=== PATIENT | female | born 1965 | race Caucasian/White ===

== ENCOUNTER 2016-05-31 09:26 | Emergency (ER) | payer BC ==
[2016-05-31 12:01] LABS: Hematocrit 42 % (35-47); Hemoglobin 14.2 g/dl (12.0-16.0); Mean Corpuscular HGB Conc 34 g/dl (31-36); Mean Corpuscular Hemoglobin 31 pg (27-31); Mean Corpuscular Volume 92 fL (80-97); Mean Platelet Volume 10 um3 (7.4-10.4); Red Blood Count 4.59 10^6/ul (4.0-5.4); Red Cell Distribution Width 13 % (10.5-15); White Blood Count 5.6 10^3/ul (3.5-10.8)
[2016-05-31 12:02] LABS: Urine Bilirubin Negative (Negative); Urine Glucose Negative (Negative); Urine Nitrite Negative (Negative)
--- NOTE | 2016-05-31 12:14 | RAD ---
Indication: Headache; worsening vision for the past 2 weeks. Comparison: None. Technique: Noncontrast CT vertex of skull through foramen magnum. Report: The sulci, ventricles, and basal cisterns are normal for age. Casiano matter white matter differentiation is preserved without evidence for edema. No intra or extra axial hemorrhage, mass, or fluid collection detected. Unremarkable visualized orbital contents. Unremarkable calvarium and skull base. Unremarkable scalp. The visualized paranasal sinuses and mastoid air spaces are clear. IMPRESSION: Negative unenhanced head CT.
[2016-05-31 12:17] LABS: Albumin 4.2 g/dL (3.2-5.2); BUN/Creatinine Ratio 21.3 (8-20); C Reactive Protein 1.2 mg/L (< 5.00); Calcium 9.4 mg/dL (8.6-10.3); EGFR Non-African American 103.4 (>60); Magnesium 2.1 mg/dL (1.9-2.7); Potassium 4.4 mmol/L (3.5-5.0); Total Bilirubin 0.5 mg/dL (0.2-1.0); Total Protein 7.2 g/dL (6.4-8.9)
[2016-05-31 12:19] LABS: Troponin I 0.01 ng/mL (<0.04)
[2016-05-31 12:49] LABS: Erythrocyte Sed Rate 16 mm/Hr (0-30)
[2016-05-31 13:00] LABS: TSH (Thyroid Stimulating Horm) 2.6 mcIU/mL (0.34-5.60)
--- NOTE | 2016-05-31 14:18 | ED ---
Kyra Rubi Matthew, scribed for Angel Alejandro MD on 05/31/16 at 1130 . Headache - HPI Summary HPI Summary: A 50 y/o female presents to the ED with an intermittent temporal headache since 3 days ago. The pain varies from 0-5 in severity and she chronically has these headaches. Two days ago, the patient also noticed blacked squares in each eye, which persisted for 5-6 hours. The squares were directly in the middle of her vision. Yesterday and today, she continues to have visual difficulties, but is unable to described them. She notes that its difficulty to focus on stimuli both visual and hearing. Associated symptoms include difficulty thinking, difficulty focusing, and chest fluttering. The patient denies speech difficulties, numbness, and weakness. She states that she her headache worsens when she tries to find the next word. The patient was at a conference over the weekend. FHx of multiple TIAs in her mother, which started in her mid 50s. The patient is on ADHD medication. - History Of Current Complaint Chief Complaint: EDHeadache Stated Complaint: HEADACHE/VISUAL DISTURBANCES Time Seen by Provider: 05/31/16 11:00 Hx Obtained From: Patient Onset/Duration: Started days ago, Still Present Initially Headache Was: Moderate Currently Pain Is: Moderate Timing: Intermittent, Lasting: Character: Typical Headache Location of Headache: Temporal Associated Signs And Symptoms: Visual Changes, Other (Noted In Comments) - Difficulty thinking, difficulty focus on stimuli - Allergies/Home Medications Allergies/Adverse Reactions: Allergies Allergy/AdvReac Type Severity Reaction Status Date / Time No Known Allergies Allergy Unverified 01/06/16 11:54 PMH/Surg Hx/FS Hx/Imm Hx Endocrine/Hematology History: Denies: Hx Diabetes, Hx Thyroid Disease Cardiovascular History: Reports: Hx Hypercholesterolemia Denies: Hx Hypertension, Hx Pacemaker/ICD, Hx Peripheral Vascular Disease History: Denies: Hx Renal Disease Musculoskeletal History: Denies: Hx Arthritis, Hx Rheumatoid Arthritis, Hx Osteoporosis Sensory History: Denies: Hx Cataracts, Hx Contacts or Glasses, Hx Glaucoma, Hx Hearing Aid Opthamlomology History: Denies: Hx Cataracts, Hx Contacts or Glasses, Hx Glaucoma Neurological History: Denies: Hx Headaches, Hx Seizures, Hx Transient Ischemic Attacks (TIA) Psychiatric History: Reports: Hx Anxiety, Hx Depression Denies: Hx Panic Disorder - Surgical History Surgery Procedure, Year, and Place: 12/16/14 HYSTERECTOMY. AGE 18 HERNIA REPAIR. 04/01/08-CYPHER HEART STENTS-1.5 OR 3T UP TO 720G/CM Infectious Disease History: No Infectious Disease History: Denies: Traveled Outside the [place] in Last 30 Days - Family History Known Family History: Negative: Hypertension, Diabetes Family History: FHx of TIA. FHx of CVA. FHx of CA. NO FHx of breast CA. NO FHx of RA, arthritis, HLD, osteoporosis - Social History Occupation: Employed Full-time Hx Substance Use: No Substance Use Type: Reports: None Hx Tobacco Use: No Review of Systems Constitutional: Negative Eyes: Other - Visual Symptoms ENT: Negative Cardiovascular: Other - Chest Fluttering Respiratory: Negative Gastrointestinal: Negative Genitourinary: Negative Musculoskeletal: Negative Skin: Negative Neurological: Other - Difficulty thinking; Difficulty focusing on stimuli Psychological: Normal All Other Systems Reviewed And Are Negative: Yes Physical Exam Triage Information Reviewed: Yes Vital Signs On Initial Exam: Initial Vitals Temp Pulse Resp BP Pulse Ox 98.4 F 83 18 131/72 99 05/31/16 09:29 05/31/16 09:29 05/31/16 09:29 05/31/16 09:29 05/31/16 09:29 Vital Signs Reviewed: Yes Appearance: Positive: Well-Appearing, No Pain Distress Skin: Positive: Warm, Dry Head/Face: Positive: Normal Head/Face Inspection Eyes: Positive: EOMI, ZOHREH ENT: Positive: Normal ENT inspection Neck: Positive: Supple, Nontender Respiratory/Lung Sounds: Positive: Clear to Auscultation, Breath Sounds Present Cardiovascular: Positive: RRR Abdomen Description: Positive: Nontender, Soft Bowel Sounds: Positive: Present Musculoskeletal: Positive: Strength/ROM Intact Neurological: Positive: Alert, Oriented to Person Place, Time Psychiatric: Positive: Anxious Diagnostics - Vital Signs Vital Signs Temp Pulse Resp BP Pulse Ox 05/31/16 09:29 98.4 F 83 18 131/72 99 - Laboratory Lab Results: Lab Results 05/31/16 05/31/16 05/31/16 Range/Units 11:50 11:50 11:50 WBC 5.6 (3.5-10.8) 10^3/ul RBC 4.59 (4.0-5.4) 10^6/ul Hgb 14.2 (12.0-16.0) g/dl Hct 42 (35-47) % MCV 92 (80-97) fL MCH 31 (27-31) pg MCHC 34 (31-36) g/dl RDW 13 (10.5-15) % Plt Count 160 (150-450) 10^3/ul MPV 10 (7.4-10.4) um3 Neut % (Auto) 58.9 (38-83) % Lymph % (Auto) 28.7 (25-47) % [place] % (Auto) 8.2 (1-9) % Eos % (Auto) 3.6 (0-6) % Baso % (Auto) 0.6 (0-2) % Absolute Neuts (auto) 3.3 (1.5-7.7) 10^3/ul Absolute Lymphs (auto) 1.6 (1.0-4.8) 10^3/ul Absolute Monos (auto) 0.5 (0-0.8) 10^3/ul Absolute Eos (auto) 0.2 (0-0.6) 10^3/ul Absolute Basos (auto) 0 (0-0.2) 10^3/ul Absolute Nucleated RBC 0 10^3/ul Nucleated RBC % 0.1 ESR 16 (0-30) mm/Hr INR (Anticoag Therapy) 0.97 (0.89-1.11) APTT 28.7 (26.0-36.3) seconds Sodium (133-145) mmol/L Potassium (3.5-5.0) mmol/L Chloride (101-111) mmol/L Carbon Dioxide (22-32) mmol/L Anion Gap (2-11) mmol/L BUN (6-24) mg/dL Creatinine (0.51-0.95) mg/dL Est GFR ( Amer) (>60) Est GFR (Non-Af Amer) (>60) BUN/Creatinine Ratio (8-20) Glucose (70-100) mg/dL Calcium (8.6-10.3) mg/dL Magnesium (1.9-2.7) mg/dL Total Bilirubin (0.2-1.0) mg/dL AST (13-39) U/L ALT (7-52) U/L Alkaline Phosphatase (34-104) U/L Total Creatine Kinase (10-223) U/L Troponin I (<0.04) ng/mL C-Reactive Protein (< 5.00) mg/L Total Protein (6.4-8.9) g/dL Albumin (3.2-5.2) g/dL Globulin (2-4) g/dL Albumin/Globulin Ratio (1-3) TSH (0.34-5.60) mcIU/mL Urine Color Straw Urine Appearance Clear Urine pH 8.0 (5-9) Ur Specific [place] 1.005 L (1.010-1.030) Urine Protein Negative (Negative) Urine Ketones Negative (Negative) Urine Blood Negative (Negative) Urine Nitrate Negative (Negative) Urine Bilirubin Negative (Negative) Urine Urobilinogen Negative (Negative) Ur Leukocyte Esterase Negative (Negative) Urine Glucose Negative (Negative) 05/31/16 Range/Units 11:50 WBC (3.5-10.8) 10^3/ul RBC (4.0-5.4) 10^6/ul Hgb (12.0-16.0) g/dl Hct (35-47) % MCV (80-97) fL MCH (27-31) pg MCHC (31-36) g/dl RDW (10.5-15) % Plt Count (150-450) 10^3/ul MPV (7.4-10.4) um3 Neut % (Auto) (38-83) % Lymph % (Auto) (25-47) % [place] % (Auto) (1-9) % Eos % (Auto) (0-6) % Baso % (Auto) (0-2) % Absolute Neuts (auto) (1.5-7.7) 10^3/ul Absolute Lymphs (auto) (1.0-4.8) 10^3/ul Absolute Monos (auto) (0-0.8) 10^3/ul Absolute Eos (auto) (0-0.6) 10^3/ul Absolute Basos (auto) (0-0.2) 10^3/ul Absolute Nucleated RBC 10^3/ul Nucleated RBC % ESR (0-30) mm/Hr INR (Anticoag Therapy) (0.89-1.11) APTT (26.0-36.3) seconds Sodium 137 (133-145) mmol/L Potassium 4.4 (3.5-5.0) mmol/L Chloride 105 (101-111) mmol/L Carbon Dioxide 27 (22-32) mmol/L Anion Gap 5 (2-11) mmol/L BUN 13 (6-24) mg/dL Creatinine 0.61 (0.51-0.95) mg/dL Est GFR ( Amer) 133.0 (>60) Est GFR (Non-Af Amer) 103.4 (>60) BUN/Creatinine Ratio 21.3 H (8-20) Glucose 94 (70-100) mg/dL Calcium 9.4 (8.6-10.3) mg/dL Magnesium 2.1 (1.9-2.7) mg/dL Total Bilirubin 0.50 (0.2-1.0) mg/dL AST 24 (13-39) U/L ALT 23 (7-52) U/L Alkaline Phosphatase 118 H (34-104) U/L Total Creatine Kinase 77 (10-223) U/L Troponin I 0.01 (<0.04) ng/mL C-Reactive Protein 1.20 (< 5.00) mg/L Total Protein 7.2 (6.4-8.9) g/dL Albumin 4.2 (3.2-5.2) g/dL Globulin 3.0 (2-4) g/dL Albumin/Globulin Ratio 1.4 (1-3) TSH 2.60 (0.34-5.60) mcIU/mL Urine Color Urine Appearance Urine pH (5-9) Ur Specific [place] (1.010-1.030) Urine Protein (Negative) Urine Ketones (Negative) Urine Blood (Negative) Urine Nitrate (Negative) Urine Bilirubin (Negative) Urine Urobilinogen (Negative) Ur Leukocyte Esterase (Negative) Urine Glucose (Negative) Result Diagrams: 05/31/16 11:50 05/31/16 11:50 Lab Statement: Any lab studies that have been ordered have been reviewed, and results considered in the medical decision making process. - CT Brain CT CT Interpretation: No Acute Changes - IMPRESSION: Negative unenhanced head CT. CT Interpretation Completed By: Radiologist Re-Evaluation - Re-Evaluation First Eval Re-Evaluation Time: 13:51 Change: Improved Comment: Reviewed the lab and imaging results with the patient. She states that she is feeling better. Headache Course/Dx - Course Assessment/Plan: WELL IN ED. NO EYE PAIN. DISCUSSED RESULTS WITH DR DAVIS , NEUROLOGY. F/U WITH OPTHALMOLOGY ARRANGED; PATIENT WILL GO DIRECTLY TO DR JENNINGS'S OFFICE. PATIENT HAS FOLLOW UP WITH PMD TOMORROW. DISCHARGE HOME STABLE. - Diagnoses Provider Diagnoses: Blurred vision, Headache - Physician Notifications Discussed Care Of Patient With: Dr. López (Neurology) at 13:21 -- Notified of patient's history and didn't Believe there was obvious neurology deficit. He recommended an eye exam be completed today. Nick eye associated at 14:01 Stated that they would perform an eye exam on the patient today. Discharge - Discharge Plan Condition: Stable Disposition: HOME Patient Education Materials: Blurred Vision (ED) Referrals: Paulette Castellano MD [Primary Care Provider] - Additional Instructions: FOLLOW UP AT DR JENNINGS'S OFFICE NOW, [address] [place] [address], . RETURN TO THE EMERGENCY DEPARTMENT FOR ANY WORSENING OF YOUR CONDITION OR QUESTIONS OR CONCERNS. The documentation as recorded by the Kyra eckert Matthew accurately reflects the service I personally performed and the decisions made by me, Angel Alejandro MD.
[2016-05-31 14:19] VITALS: BP 120/68
== END 2016-05-31 14:18 | disposition home or self-care (01) ==
LOC: ED 09:26
DX: H53.8 Other visual disturbances (principal); R51 Headache
CPT/HCPCS: 36415; 70450; 80053; 81003; 82550; 83735; 84443; 84484; 85025; 85610; 85652; 85730; 86140; 99282

== ENCOUNTER 2019-05-12 16:26 | Emergency (ER) | payer BC ==
--- OUTSIDE RECORDS SUMMARY | 2019-05-12 16:32 | XMS REPORT | Continuity of Care Document ---
:1965 External Reference #:[id number] Author Name Sahra March M.D., FACP (transmitted by agent of provider Grisel Norris) Address [address], [place] [address] Care Team Providers Name Role Phone Bernarda Reyes MD - Internal Medicine Care Team Information [employer] Dean Sanjiv Perdomo MD - Gastroenterology Care Team Information [employer] Dean Don Mcgowan MD - Surgery Care Team Information [employer] Dean [phone] Anna Romero MD - Obstetrics & Care Team Information [employer] Dean Gynecology Yogi Dias MD - Cardiovascular Care Team Information [employer] Dean Disease Jeannette Brown MD - Internal Care Team Information [employer] Dean [phone] Medicine Tomi Mauro D.D.S. - Dentist Care Team Information [employer] Dean Problems Active Problems Provider Date Coronary atherosclerosis Bernarda Reyes M.D. Onset: 07/13/2011 Chronic ischemic heart disease Yogi Dias M.D., [facility], [facility] Onset: 2013 Essential hypertension Yogi Dias M.D., [facility], [facility] Onset: 10/09/2013 Mixed hyperlipidemia Yogi Dias M.D., [facility], [facility] Onset: 12/11/2014 Chronic ischemic heart disease, Yogi Dias M.D., [facility], [facility] Onset: 2014 unspecified Tubular adenoma Onset: Note: repeat 2020 Insomnia Isaac Neely BILLING ADMINISTRATOR Onset: 06/01/2016 Moderate depression Isaac Neely, BILLING ADMINISTRATOR Onset: 06/01/2016 Attention deficit hyperactivity disorder, 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 Social History Type Date Description Comments Sex Unknown ETOH Use Rarely consumes 1 drink every four alcohol months on average Tobacco Use Start: Unknown Patient has never smoked Recreational Drug Use Denies Drug Use Smoking Status Reviewed: Patient has never 03/29/19 smoked Exercise Type/Frequency Exercises regularly swimming 3x/wk at [email or web address] , bicycle and walking for transportation jogging Allergies, Adverse Reactions, Alerts Active Allergies Reaction Severity Comments Date NKDA 07/13/2011 Sulfites itchy, cannot sleep Moderate 06/01/2016 Medications Active Medications SIG Qnty Indications Ordering Date Provider Methylphenidate 1 tab daily 30tabs Sahra March, 01/09/2019 Hydrochloride ER M.DOsmel, FACP 36mg Tablets ER Mandibular Advancement fabricate oral Valorie Knox, 12/28/2017 Device appliance DNP, RN, SAFETY LEADER-BC Device /mandibular advancement device for sleep apnea with needed adjustments. dx g47.33 Metoprolol Succinate 1/2 by mouth every 45tabs Qutaybeh S. 12/11/2014 ER day Анна Armstrong 25mg Tablets ER 24HR Nitrostat 1/2-1 tab 25tabs I25.9 Yogi Dias, 12/11/2014 0.4mg Tablets sublingual as M.DOsmel, FACC, Sub needed every 5 FSCAI mins x 3 Atorvastatin Calcium 1 by mouth every 90tabs Qutaybeh S. 10/04/2013 40mg day Анна Armstrong Tablets Colace 1 po bid 60caps 285.9 Bernarda Reyes, 07/20/2011 100mg Capsules M.D. Sertraline HCL 2 tabs by mouth 90tabs Sahra March, 100mg every day at at M.D., FACP Tablets bedtime Aspir-81 1 po qd Unknown 81mg Tablets DR [place] 3 1 po qday 30caps Unknown 2000mg Capsules Niacin ER 1 by mouth daily 90tabs Qutaybeh S. (Antihyperlipidemic) Анна Armstrong 500mg Tablets ER Aripiprazole take one tablet by Unknown 5mg Tablets mouth nightly at bedtime Medications Administered in Office Medication SIG Qnty Indications Ordering Provider Date Technetium TC 99M Morris Dickinson M.D., 08/08/2012 Tetrofosmin, Per Unit Dose FACC, FASMI Up To 40 Millicuries Injection Immunizations CPT Code Status Date Vaccine Reaction Lot # [id number] Given 12/25/2018 Influenza Virus Vaccine, No Immediate reaction [id number] Quadrivalent ([id number]), Noted - Pt tolerated Derived From Cell well ... 44580 Given 12/29/2017 Influenza Virus Vaccine, Quadrivalent, Split, Preservative Free [id number] Given 02/03/2016 Influ Virus Vaccine, Quadrivalent, Split Virus, [place] [id number] Given 12/02/2014 Influenza Virus Vaccine, [id number] Quadrivalent, Split, Preservative Free 86075 Given 02/06/2014 Tdap - [id number] Tetanus/Diptheria/Acellular Pertussis 15808 Given 01/02/2014 Influenza Vaccine Quadrivalent, Live For Intranasal Use [id number] Given 12/03/2011 Fluzone Vaccine [id number] Vital Signs Date Vital Result Comment 03/29/2019 1:04pm Height 64.5 inches 5'4.50" Weight 139.00 lb Heart Rate 62 /min BP Systolic Sitting 116 mmHg Lue reg cuff BP Diastolic Sitting 70 mmHg Lue reg cuff Body Temperature 97.4 F O2 % BldC Oximetry 97 % BMI (Body Mass Index) 23.5 kg/m2 12/25/2018 12:09pm Height 64.5 inches 5'4.50" Weight 133.00 lb Heart Rate 61 /min BP Systolic Sitting 105 mmHg BP Diastolic Sitting 72 mmHg O2 % BldC Oximetry 100 % BMI (Body Mass Index) 22.5 kg/m2 Results Test Acquired Date Facility Test Result H/L Range Note Comp Metabolic 12/09/2018 [facility] Sodium 142 mmol/L Normal 135-[address] [place] [address] [phone] Potassium 3.9 mmol/L Normal 3.5-5.0 Chloride 106 mmol/L Normal 101-111 Co2 Carbon Dioxide 31 mmol/L Normal 22-32 Anion Gap 5 mmol/L Normal 2-11 Glucose 95 mg/dL Normal 70-100 Blood Urea Nitrogen 14 mg/dL Normal 6-24 Creatinine 0.69 mg/dL Normal 0.51-0.95 BUN/Creatinine Ratio 20.3 High 8-20 Calcium 9.4 mg/dL Normal 8.6-10.3 Total Protein 6.5 g/dL Normal 6.4-8.9 Albumin 4.3 g/dL Normal 3.2-5.2 Globulin 2.2 g/dL Normal 2-4 Albumin/Globulin Ratio 2.0 Normal 1-3 Total Bilirubin 0.30 mg/dL Normal 0.2-1.0 Alkaline Phosphatase 99 U/L Normal 34-104 Alt 20 U/L Normal 7-52 Ast 23 U/L Normal 13-39 Egfr Non- 88.7 >60 Egfr 107.3 >60 1 Lipid Profile 12/09/2018 [facility] Triglycerides 137 mg/dL 2 (Trig/Chol/HDL) [address] [place] [address] [phone] Cholesterol 141 mg/dL 3 HDL Cholesterol 43.9 mg/dL 4 LDL Cholesterol 70 mg/dL 5 Laboratory test 12/09/2018 [facility] Creatine 65 U/L Normal 10-[address] Kinase(CK) [place] [address] [phone] Lipid Panel - 12/08/2018 [facility] Creatine <pending [facility] [address] [facility](CK) > [place] [address] [phone] 1 Because ethnic data is not always readily available, this report includes an eGFR for both -Americans and non- Americans. The National Kidney Disease Education Program (NKDEP) does not endorse the use of the MDRD equation for patients that are not between the ages of 18 and 70, are , have extremes of body size, muscle mass, or nutritional status, or are non- or non-. According to the National Kidney Foundation, irrespective of diagnosis, the stage of the disease is based on the level of kidney function: Stage Description GFR(mL/min/1.73 m(2)) 1 Kidney damage with normal or decreased GFR 90 2 Kidney damage with mild decrease in GFR 60-89 3 Moderate decrease in GFR 30-59 4 Severe decrease in GFR 15-29 5 Kidney failure <15 (or dialysis) 2 Desirable: <150 Borderline High: 150-199 High: 200-499 Very High: >500 3 Desirable: <200 Borderline High: 200-239 High: >239 4 Low: <40 Desirable: 40-60 High: >60 5 Desirable: <100 Near Optimal: 100-129 Borderline High: 130-159 High: 160-189 Very High: >189 Procedures Date Code Description Status 03/29/2019 92531 EKG Tracing & Interpretation Completed 01/01/2019 20060 ECHO Transthoracic, Real-Time 2D With Doppler And Color Completed Flow 01/01/2019 37329 ECHO Transthoracic, Real-Time 2D With Doppler And Color Completed Flow 12/12/2018 90882 EKG Tracing & Interpretation Completed 05/05/2018 11848080 Mammogram Completed 10/06/2016 [id number] Mammogram Completed 04/14/2015 [id number] Colonoscopy Completed 03/10/2015 [id number] Mammogram Completed 02/19/2014 [id number] Mammogram Completed 09/03/2011 25195090 Colonoscopy Completed Medical Devices Description No Information Available Encounters Type Date Location Provider Dx Diagnosis Office Visit 12/25/2018 [facility] Internal Paulettemae Castellano, F32.89 Other specified 12:10p Medicine - Ccmob M.DOsmel depressive episodes F90.0 Attn-defct hyperactivity disorder, predom inattentive type E78.5 Hyperlipidemia, unspecified Z23 Encounter for immunization Z12.31 Encntr screen mammogram for malignant neoplasm of breast Office Visit 12/12/2018 [facility] G47.33 Obstructive sleep 3:40p Cardiology Filomena Armstrong M.D. apnea (adult) [facility] (pediatric) I25.10 Athscl heart disease [place] coronary artery w/o ang pctrs Z98.61 Coronary angioplasty status E78.5 Hyperlipidemia, unspecified Assessments Date Code Description Provider 03/29/2019 Z00.00 Encounter for general adult medical Sahra March M.D., FACP examination without abnormal findings 03/29/2019 E78.00 Pure hypercholesterolemia, unspecified Sahra March M.D., FACP 03/29/2019 K57.91 Diverticulosis of intestine, part Sahra March M.D., FACP unspecified, without perforation or abscess with bleeding 03/29/2019 G47.00 Insomnia, unspecified Sahra March M.D., [facility] 03/29/2019 I25.10 Atherosclerotic heart disease of [place] Sahra March M.D. , [facility] coronary artery without angina pectoris 03/29/2019 F41.9 Anxiety disorder, unspecified Sahra March M.D., [facility] 03/29/2019 N95.1 Menopausal and female climacteric Sarha March M.D., [facility] states 03/29/2019 E55.9 Vitamin D deficiency, unspecified Sahra March M.D., [facility] 01/01/2019 I25.10 Atherosclerotic heart disease of [place] Orestes Armstrong M.D. coronary artery without angina pectoris 01/01/2019 I25.10 Atherosclerotic heart disease [place] [facility] coronary artery without angina pectoris 01/01/2019 G47.33 Obstructive sleep apnea (adult) [place] [facility] (pediatric) 01/01/2019 Z98.61 Coronary angioplasty status [place] [facility] 12/25/2018 F32.89 Other specified depressive episodes Paulette Castellano M.D. 12/25/2018 F90.0 Attention-deficit hyperactivity Paulette Castellano M.D. disorder, predominantly inattentive type 12/25/2018 E78.5 Hyperlipidemia, unspecified Paulette Castellano M.D. 12/25/2018 Z23 Encounter for immunization Paulette Castellano M.D. 12/25/2018 Z12.31 Encounter for screening mammogram for Paulette Castellano M.D. malignant neoplasm of breast 12/12/2018 G47.33 Obstructive sleep apnea (adult) Orestes Armstrong M.D. (pediatric) 12/12/2018 I25.10 Atherosclerotic heart disease of [place] Orestes Armstrong M.D. coronary artery without angina pectoris 12/12/2018 Z98.61 Coronary angioplasty status Orestes Armstrong M.D. 12/12/2018 E78.5 Hyperlipidemia, unspecified Orestes Armstrong M.D. Plan of Treatment Future Appointment(s):08/06/2019 9:30 am - Valorie Knox DNP, RN, SAFETY LEADER-BC at [facility]03/29/2019 - Sahra March M.D., FACPZ00.00 Encounter for general adult medical examination without abnormal findingsComments:GENERAL PHYSICAL EXAM: You are up to date with your vaccinations. Your last tetanus/pertussis booster was in 02/17.You received a flu shot last December.We discussed the shingles vaccine (Shingrix) today. It is a two shot series: check with your pharmacy to see if there is a record.I recommend regular screening mammography (your last mammogram was in 05/23).Your last colonoscopy was in 02/19. A follow up colonoscopy was recommended in 5 years.I think that it is a good idea to have an Advance Directive on file here.We reviewed healthy lifestyle practices, specifically, strategies to maintain a durable ideal body weight and an aerobic exercise routine.E78.00 Pure hypercholesterolemia, unspecifiedComments:HYPERCHOLESTEROLEMIA:You have historically been well controlled on atorvastatin. Your last fasting lipid profile was in 12/23. At that time your total cholesterol was 141 (best<200) , your LDL ("badcholesterol") was 70 (ideally <100) and your HDL ("good cholesterol") was 43.9 (should be >60).I recommend that you continue the atorvastatin. Do your best to maintain a regular aerobic exercise regimen.K57.91 Diverticulosis of intestine, part unspecified, without perforation or abscess with bleedingComments:DIVERTICULOSIS:I suspect that your symptoms were due to a mild case of diverticular disease. Pleaselet me knpow that they resolve fully. If they recur, I need to know this DAMION. We talked about fiber supplementation as a strategy to ameliorate this condition as well as IBS/constipation. Metamucil and Benefiber are two examples.G47.00 Insomnia, unspecifiedComments:INSOMNIA/SLEEP FRAGMENTATION:We discussed sleep hygiene today. Try not to go to bed until you are sleepy and do your best to keep a bedtime routine. No screens in bed. Turn the clock away so that you are not checking the time during the night: doing so wakes up more parts of your brain. You may try diphenhydramine (25 mg) which is available OTC. Some people find that melatonin is helpful. A disadvantage of most of the prescription sleep aids (like zolpidem or Ambien) is that they can be habit forming; they are best used for situational insomnia and on an as needed basis only.I25.10 Atherosclerotic heart disease of [place] coronary artery without angina pectorisComments:CORONARY ARTERY DISEASE:The mainstay of management of this condition is meticulous blood pressure and lipid control.F41.9 Anxiety disorder , unspecifiedComments:DEPRESSION/ANXIETY: We talked about counselling and the role of pharmacotherapy. You might want to try using a light box if you feel there is a seasonal component. I have given you some written information about resources in the community.N95.1 Menopausal and female climacteric statesNew Xrays:Dexa Bone Dens Axial Skeleton (Hips, Pelvis, Spine), Ordered: Comments:MENOPAUSE:You should be taking calcium/Vitamin D (1200mg/1000IU) supplementation daily and doing weight bearing exercises.E55.9 Vitamin D deficiency, unspecifiedNew Labs:Vitamin D Total 25(Oh), Ordered: Comments:VITAMIN D DEFICIENCY:We talked about the current controversy surrounding Vitamin D in terms of the new [employer]'s, accuracy of measurement and the clinical associations recently observed in many different conditions.I would like to check a Vitamin D level. Functional Status Description No Information Available Mental Status Description No Information Available Referrals Description No Information Available
[2019-05-12 16:38] VITALS: BP 123/71
--- NOTE | 2019-05-12 17:44 | UC ---
Minor Trauma HPI - HPI Summary HPI Summary: PATIENT WAS CROSS [employer] [employer]ING THIS AFTERNOON WHEN SHE FELL AND STRUCK HER LEFT FOREHEAD AND LEFT HIP ON THE GROUND. NO LOC. NO NAUSEA/VOMITING. NO VISUAL DISTURBANCES OR DIZZINESS. PATIENT COMPLAINS OF A HEADACHE ONLY. SHE IS ALSO WORRIED ABOUT LEFT HIP PAIN ALTHOUGH SHE IS AMBULATORY WITHOUT DIFFICULTY. 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 - Onset/Duration: Sudden Onset, Lasting Hours, Still Present Onset Of Pain: Immediate Severity Initially: Moderate Severity Currently: Moderate Pain Intensity: 4 Pain Scale Used: 0-10 Numeric Aggravating Factor(s): Nothing Alleviating Factor(s): Rest Associated Signs And Symptoms: Negative: Loss Of Consciousness - Allergies/Home Medications Allergies/Adverse Reactions: Allergies Allergy/AdvReac Type Severity Reaction Status Date / Time No Known Allergies Allergy Unverified 05/12/19 16:38 Home Medications: Home Medications Ambien 5 - 10 mg PO BEDTIME 01/10/13 [History Confirmed 05/12/19] Aspirin 81 mg PO DAILY 01/10/13 [History Confirmed 05/12/19] Colace 100 mg PO BID 01/10/13 [History Confirmed 05/12/19] Lipitor 40 mg PO DAILY 01/10/13 [History Confirmed 05/12/19] Metoprolol 25 mg PO DAILY 01/10/13 [History Confirmed 05/12/19] Niaspan 500 mg PO DAILY 01/10/13 [History Confirmed 05/12/19] [place] 3 1,000 mg PO DAILY 01/10/13 [History Confirmed 05/12/19] Zoloft 200 mg PO DAILY 01/10/13 [History Confirmed 05/12/19] Polyethylene Glycol 3350* [Miralax*] 17 gm PO DAILY PRN 04/14/15 [History Confirmed 05/12/19] PMH/Surg Hx/FS Hx/Imm Hx Cardiovascular History: Cardiac Disease - 3 STENTS, Myocardial Infarction - Surgical History Surgical History: Yes Surgery Procedure, Year, and Place: 12/16/14 HYSTERECTOMY. AGE 18 HERNIA REPAIR. 04/01/08-CYPHER HEART STENTS-1.5 OR 3T UP TO 720G/CM - Family History Known Family History: Negative: Hypertension, Diabetes Family History: FHx of TIA. FHx of CVA. FHx of CA. NO FHx of breast CA. NO FHx of RA, arthritis, HLD, osteoporosis - Social History Alcohol Use: Rare Substance Use Type: None Smoking Status (MU): Never Smoked Tobacco Review of Systems All Other Systems Reviewed And Are Negative: Yes Constitutional: Positive: Negative Skin: Positive: Other - ABRASION Respiratory: Positive: Negative Cardiovascular: Positive: Negative Gastrointestinal: Positive: Negative Neurological/Mental Status: Positive: Headache Physical Exam Triage Information Reviewed: Yes Appearance: Well-Appearing, No Pain Distress, Well-Nourished Vital Signs: Initial Vital Signs Temp 98.4 F 05/12/19 16:33 Pulse 70 05/12/19 16:33 Resp 18 05/12/19 16:33 BP 123/71 05/12/19 16:33 Pulse Ox 100 05/12/19 16:33 Vital Signs Reviewed: Yes Eyes: Positive: Conjunctiva Clear, Other: - PERRL, EOMI ENT: Positive: Hearing grossly normal, Pharynx normal, TMs normal Neck: Positive: Supple, Nontender, No Lymphadenopathy Respiratory Exam: Normal Cardiovascular Exam: Normal Abdomen Description: Positive: Soft Musculoskeletal: Positive: Strength Intact, ROM Intact, No Edema, Other: - TENDER OVER LEFT GREATER TROCHANTER. TENDER LEFT FOREHEAD Neurological: Positive: Alert, Muscle Tone Normal, Other: - CN II-XII GROSSLY INTACT BILATERALLY. RAPID ALTERNATING MOVEMENTS INTACT. NEG PRONATOR DRIFT. NEG ROMBERG. 5/5 STRENGTH. HEEL TO LUCIANO INTACT BILATERALLY. TANDEM GAIT INTACT. FINGER TO NOSE INTACT. Psychological: Positive: Normal Response To Family, Age Appropriate Behavior Skin: Positive: Other - SPFL ABRASION LEFT FOREHEAD Minor Trauma Course/Dx - Course Course Of Treatment: 1. SYMPTOMS DO NOT SUPPORT DIAGNOSIS OF CONCUSSION AT THIS TIME. OUT OF AN ABUNDANCE OF CAUTION HAVE ADVISED PATIENT TO AVOID NSAIDS FOR THE FIRST 24 HOURS. SHE WILL TAKE TYLENOL FOR HEADACHE. NO INDICATION FOR NEUROIMAGING AT THIS TIME. SHE DOES HAVE SOME VERY MILD TENDERNESS OVER HER LEFT SUPERIOR ORBIT HOWEVER THIS IS VERY CLOSE TO THE ABRASION ON HER FOREHEAD. THERE IS NO BRUISING OR DEFORMITY. DISCUSSED WITH PATIENT CONCERN FOR ORBITAL FRACTURE. ALTHOUGH THIS IS LOW PROBABILITY IT IS CERTAINLY SOMETHING NOT TO MISS. WE DO NOT HAVE CT SCAN HERE WE DISCUSSED TRANSFER TO THE EMERGENCY ROOM FOR FURTHER IMAGING. PATIENT DECLINES WHICH I THINK IS REASONABLE BASED ON HER PRESENTATION AND MILD PHYSICAL EXAM FINDINGS. ADVISED TO GO TO THE ER WITHOUT FAIL IF HER SYMPTOMS WORSEN OR SHE DEVELOPS ANY FOCAL NEUROLOGIC SYMPTOMS. 2. PATIENT IS AMBULATORY WITHOUT A LIMP. HAS NO INCREASE IN DISCOMFORT WITH WEIGHTBEARING OR WITH MOVEMENT AT THE HIP. TENDERNESS SEEMS TO BE OVER HER LEFT GREATER TROCHANTER. SUSPECT A CONTUSION TO THIS AREA. DISCUSSED WITH THE PATIENT THAT SHE MAY DEVELOP A BURSITIS. OTC MEDICATIONS NEEDED FOR DISCOMFORT. ENCOURAGED TO STRETCH AND GO THROUGH RANGE OF MOTION EXERCISES DAILY. AVOID HIGH IMPACT ACTIVITIES UNTIL SYMPTOMS HAVE RESOLVED. - Differential Dx/Diagnosis Provider Diagnosis: Head injury, acute, Contusion of left hip Discharge ED - Sign-Out/Discharge Documenting (check all that apply): Patient Departure All imaging exams completed and their final reports reviewed: No Studies - Discharge Plan Condition: Stable Disposition: HOME Patient Education Materials: Head Injury (ED), Contusion in Adults (ED), Hip Pain (ED) Referrals: Sahra March MD [Primary Care Provider] - If Needed Additional Instructions: NO INDICATION FOR NEUROIMAGING AT PRESENT. STAY WELL HYDRATED AND RESTED. OKAY FOR TYLENOL TONIGHT FOR HEADACHE. STARTING TOMORROW AFTERNOON CAN TAKE IBUPROFEN IF NEEDED. GO TO THE ED WITHOUT FAIL IF YOU DEVELOP UNEQUAL PUPILS, VISUAL DISTURBANCE, GAIT INSTABILITY, SPEECH DIFFICULTY, NAUSEA/VOMITING, WORSENING HEADACHE, DIZZINESS, CONFUSION, WEAKNESS OR ANY OTHER CONCERNING SYMPTOMS. LOW SUSPICION FOR ANY BONY HIP INJURY. PRESENTATION IS MORE CONSISTENT WITH A CONTUSION/SOFT TISSUE INJURY. YOUR SYMPTOMS SHOULD IMPROVE SIGNIFICANTLY OVER THE NEXT 1-2 WEEKS. IF YOU DO NOT IMPROVE EXPECTED FOLLOW-UP WITH YOUR PCP. YOU MAY BENEFIT FROM IMAGING AT THAT TIME. REST. OTC MEDS NEEDED FOR DISCOMFORT. BE SURE TO GO THROUGH SLOW RANGE OF MOTION AND STRETCHING EXERCISES DAILY YOU ARE ABLE TO PREVENT STIFFENING UP AND MAKING THE DISCOMFORT WORSE. - Billing Disposition and Condition Condition: STABLE Disposition: Home
== END 2019-05-12 17:33 | disposition home or self-care (01) ==
LOC: UCEAST 16:26
DX: S09.90XA Unspecified injury of head, initial encounter (principal); S70.02XA Contusion of left hip, initial encounter; I25.2 Old myocardial infarction; Z79.82 Long term (current) use of aspirin; Z95.5 Presence of coronary angioplasty implant and graft; W19.XXXA Unspecified fall, initial encounter; W22.8XXA Striking against or struck by other objects, initial encounter; Y92.9 Unspecified place or not applicable
CPT/HCPCS: 99211; G0463